=== PATIENT | female | born 1955 | race Caucasian/White ===

== ENCOUNTER 2020-12-21 03:42 | Emergency (ER) | payer OTHER ==
[2020-12-21 03:51] VITALS: BP 157/105; PULSE 81; TEMP 97.9; BMI 20.3
[2020-12-21] MEDS ORDERED: MAGNESIUM CITRATE 300 ML BOTTLE ONE (03:54)
[2020-12-21] MEDS ORDERED: MAGNESIUM CITRATE 300 ML BOTTLE PO ONE (03:55)
== END 2020-12-21 04:00 | disposition home or self-care (01) ==
LOC: FER 03:42
DX: K59.00 Constipation, unspecified (principal)
CPT/HCPCS: 99283-25

== ENCOUNTER 2024-08-15 17:37 | Emergency (ER) | payer OTHER ==
[2024-08-15 17:48] VITALS: BMI 21.2
[2024-08-15] MEDS ORDERED: oxyCODONE HCL 5 MG TABLET ONE ×2 (18:37→19:11)
[2024-08-15] MEDS ORDERED: ACETAMINOPHEN 500 MG TABLET (FP) ONE (18:38)
[2024-08-15] MEDS: oxyCODONE HCL 5 MG TABLET PO ONE ×2 (18:43→19:13)
[2024-08-15] MEDS: ACETAMINOPHEN 500 MG TABLET (FP) PO ONE (18:43)
[2024-08-15] MEDS ORDERED: KETAMINE HCL 200 MG/20 ML VIAL ONE (22:59)
[2024-08-16] MEDS: KETAMINE HCL 200 MG/20 ML VIAL IVPUSH ONE (00:08)
[2024-08-16] MEDS: SODIUM CHLORIDE 1,000 ML IV STA (01:53)
[2024-08-16] MEDS ORDERED: ACETAMINOPHEN INJECTION 100 ML ONE (02:38)
[2024-08-16] MEDS: ACETAMINOPHEN 1000 MG/100 ML BAG IVPB ONE (02:56)
[2024-08-16 05:48] VITALS: BP 121/69; PULSE 75; RESP 18; TEMP 97.7
== END 2024-08-16 09:09 | disposition home or self-care (01) ==
LOC: JER 17:37 → JERFT 17:37 → JER 08-16 09:09
PROC: 0RSMXZZ Reposition Left Elbow Joint, External Approach (ICD-10-PCS; principal; 2024-08-15)
PROC: 3E033NZ Introduction of Analgesics, Hypnotics, Sedatives into Peripheral Vein, Percutaneous Approach (ICD-10-PCS; 2024-08-15)
PROC: 3E033GC Introduction of Other Therapeutic Substance into Peripheral Vein, Percutaneous Approach (ICD-10-PCS; 2024-08-15)
PROC: 3E0337Z Introduction of Electrolytic and Water Balance Substance into Peripheral Vein, Percutaneous Approach (ICD-10-PCS; 2024-08-15)
DX: S53.125A Posterior dislocation of left ulnohumeral joint, initial encounter (principal); W01.0XXA Fall on same level from slipping, tripping and stumbling without subsequent striking against object, initial encounter
CPT/HCPCS: 73060-TC-LT-FY; 73070-TC-LT-FY; 73090-TC-LT-FY; 73200-TC-RT; 99285-25; J0131

== ENCOUNTER 2024-08-17 03:18 | Emergency (ER) | payer OTHER ==
[2024-08-17 03:24] VITALS: BP 102/90; PULSE 74; RESP 18; TEMP 97.9; BMI 21.2
== END 2024-08-17 04:11 | disposition home or self-care (01) ==
LOC: JER 03:18
DX: M79.602 Pain in left arm (principal)
CPT/HCPCS: 99283-25